=== PATIENT | male | born 1980 | race Caucasian/White ===

== ENCOUNTER 2024-04-03 12:08 | Emergency (ER) | payer MEDICAID ==
[~2024-04-03] VITALS: Ht 177.8 cm; Wt 81.5 kg
[~2024-04-03 12:08] MED LIST: ALB0.5UD IH; ALBU18HF2 IH; FLUT100D2 IH; Prednisone PO
[2024-04-03 12:23] VITALS: BP 138/86; PULSE 98; TEMP 98.5; O2SAT 94
[2024-04-03] MEDS: predniSONE 20 mg tablet PO ONE (13:32)
[2024-04-03] MEDS ORDERED: ALBU18HF2 INH (13:59)
[2024-04-03] MEDS ORDERED: ADV50250 IH (13:59)
[2024-04-03] MEDS ORDERED: PRED20TA PO (13:59)
[2024-04-03 14:04] VITALS: RESP 20
== END 2024-04-03 14:05 | disposition home or self-care (01) ==
LOC: ER 12:09
DX: J45.901 Unspecified asthma with (acute) exacerbation (principal)
CPT/HCPCS: 99283; J7512